=== PATIENT | male | born 1955 | race African-American/Black ===

== ENCOUNTER 2019-05-29 14:26 | Emergency (ER) | payer MEDICAID ==
[~2019-05-29] VITALS: Ht 182.9 cm; Wt 100.0 kg
[2019-05-29 15:37] LABS: CLARITY URINE CLEAR (CLEAR); COLOR URINE YELLOW (YELLOW); KETONES URINE NEGATIVE (NEGATIVE); LEUKOCYTE ESTERASE URINE NEGATIVE (NEGATIVE); NITRITE URINE NEGATIVE (NEGATIVE); OCCULT BLOOD URINE 2+ (NEGATIVE); PROTEIN URINE NEGATIVE (NEGATIVE); SPECIFIC GRAVITY URINE 1.009 (1.005-1.030); UROBILINOGEN URINE 0.2 E.U./dL (0.2-1.0)
[2019-05-29 15:48] LABS: CHLORIDE 101 mEq/L (98-107); PROTHROMBIN TIME 10.2 sec (9.6-11.0)
[2019-05-29 15:52] LABS: HEMATOCRIT. 37.5 % (42.0-52.0); HEMOGLOBIN. 12.8 g/dL (14.0-18.0); MEAN CORPUSCULAR HEMOGLOBIN 29.1 pg (28.0-32.0); MEAN CORPUSCULAR VOLUME 85.4 fL (80.0-94.0); MEAN PLATELET VOLUME 8.1 fl (7.4-10.4); PLATELET 276 x1000/uL (130-400); RED BLOOD CELL COUNT 4.39 mill/uL (4.7-6.1)
[2019-05-29] MEDS ORDERED: KETOROLAC 15MG/ML VIAL IV ONE (16:00)
[2019-05-29] MEDS ORDERED: SODIUM CHLORIDE 0.9% 1,000 ML IV ONE (16:00)
[2019-05-29] MEDS ORDERED: ONDANSETRON HCL 4MG/2ML INJ IV ONE (16:00)
[2019-05-29 16:17] LABS: PLATELET ESTIMATE NORMAL
[2019-05-29 18:55] VITALS: BP 147/81
== END 2019-05-29 18:57 | disposition home or self-care (01) ==
LOC: ER 14:39
DX: R30.0 Dysuria (principal); R31.9 Hematuria, unspecified; R33.9 Retention of urine, unspecified; R11.2 Nausea with vomiting, unspecified; R74.0 Nonspecific elevation of levels of transaminase and lactic acid dehydrogenase [LDH]; K70.9 Alcoholic liver disease, unspecified; F17.200 Nicotine dependence, unspecified, uncomplicated; M19.90 Unspecified osteoarthritis, unspecified site
CPT/HCPCS: 36415; 51702; 74176; 80053; 81003; 83690; 85025; 85610; 96360; 99284; J7030